=== PATIENT | female | born 1995 | race Two or more races ===

== ENCOUNTER 2017-07-21 13:15 | Inpatient (IN) | payer OTHER ==
[2017-07-21 15:47] LABS: PLATELET COUNT 125 10^3/uL (150-400)
[2017-07-21] MEDS ORDERED: MISOPROSTOL 200 MCG TAB PR PRN (17:30)
[2017-07-21] MEDS ORDERED: TERBUTALINE SULFATE 1 MG/ML VIAL IV PRN (17:30)
[2017-07-21] MEDS ORDERED: LR 1,000 ML IV PRN (17:30)
[2017-07-21] MEDS ORDERED: LIDOCAINE 1% 300 MG/30 ML SDV SC PRN (17:30)
[2017-07-21] MEDS ORDERED: OXYTOCIN/NORMAL SALINE 1,000 ML IV PRN (17:30)
[2017-07-21] MEDS ORDERED: OLIVE OIL 118 ML BTL MISC PRN (17:30)
[2017-07-21] MEDS ORDERED: EPSOM SALT 454 GM TP PRN (17:30)
[2017-07-21] MEDS ORDERED: CALCIUM GLUC 10% 1 GM/10 ML VIAL IVP PRN (18:20)
[2017-07-21] MEDS ORDERED: LR 500 ML IV PRN ×2 (18:20→19:07)
[2017-07-21] MEDS ORDERED: AMMONIA AROMATIC 1 EACH AMP IH ONE (18:27)
[2017-07-21] MEDS ORDERED: TERBUTALINE SULFATE 1 MG/ML VIAL ONE (18:27)
[2017-07-21] MEDS ORDERED: LIDOCAINE 1% 300 MG/30 ML SDV ONE (18:27)
[2017-07-21] MEDS ORDERED: OLIVE OIL 118 ML BTL ONE (18:27)
[2017-07-21] MEDS ORDERED: MAGNESIUM SULF 4 GM/WATER 100 ML IV ONE (18:28)
[2017-07-21] MEDS ORDERED: MISOPROSTOL 200 MCG TAB ONE (18:28)
[2017-07-21] MEDS ORDERED: OXYTOCIN 10 UNIT/ML VIAL ONE (18:28)
[2017-07-21] MEDS ORDERED: MAGNESIUM SULF 2 GM/WATER 50 ML BAG IV ONE (18:29)
--- NOTE | 2017-07-21 18:36 | PDGENHP ---
History and Physical - Chief Complaint contractions - History of Present Illness 21 yo G1 at 38w3d by LMP c/w 15 wk US. Here today with contractions all day today, often irregular, sometimes painful. No LOF, some bloody show, good FM. No WOLFE, no vis changes, no epigastric or RUQ pain. Uncomplicated course - late care which started early 2nd trimester. Normal anatomy scan at 20 wk with EFW at 31%ile labs: GBS neg 1 hr GTT 98 CBC at 15 wk: plts 222, h/h 12.8/35.6 O pos Ab screen neg RPR NR Rub Imm HbsAG neg HIV neg Parvo nonimmune pap neg Gonorrhea neg Chlamydia neg History Information - Allergies/Home Medication List Allergies/Adverse Reactions: No Known Allergies Allergy (Unverified 07/21/17 14:06) Home Medications: Docosahexanoic Acid [ Dha] 1 tab PO DAILY 07/21/17 [Last Taken Unknown] Ferrous Sulfate [Iron] 325 mg PO 07/21/17 [Last Taken Unknown] I have personally reviewed and updated: family history, medical history, social history, surgical history Past Medical History: TB at age 13, 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 Pt is respiratory therapist at [employer] Review of Systems Review of Systems: ROS: 10pt was reviewed & negative except for what was stated in HPI & below Physical Exam Physical Exam: Gen - pleasant, NAD 36.9 72 164/109 BPs labile, but at 1315 = 164/107, and 1800 164/109 did have some 120-140/75 in between Constitutional: no apparent distress Eyes: PERRL Ears, Nose, Mouth, Throat: moist mucous membranes Cardiovascular: regular rate and rhythym Respiratory: no respiratory distress Lab Data & Imaging Review 07/21/17 15:30 07/21/17 15:30 WBC 8.36 10^3/uL (3.80-9.50) 07/21/17 15:30 RBC 4.12 10^6/uL (4.18-5.33) L 07/21/17 15:30 Hgb 13.4 g/dL (12.6-16.3) 07/21/17 15:30 Hct 37.5 % (38.0-47.0) L 07/21/17 15:30 MCV 91.0 fL (81.5-99.8) 07/21/17 15:30 MCH 32.5 pg (27.9-34.1) 07/21/17 15: MCHC 35.7 g/dL (32.4-36.7) 07/21/17 15: RDW 13.6 % (11.5-15.2) 07/21/17 15:30 Plt Count 125 10^3/uL (150-400) L 07/21/17 15: MPV 13.2 fL (8.7-11.7) H 07/21/17 15: Neut % (Auto) 66.5 % (39.3-74.2) 07/21/17 15:30 Lymph % (Auto) 25.0 % (15.0-45.0) 07/21/17 15: [place] % (Auto) 7.7 % (4.5-13.0) 07/21/17 15:30 Eos % (Auto) 0.1 % (0.6-7.6) L 07/21/17 15: Baso % (Auto) 0.2 % (0.3-1.7) L 07/21/17 15: Nucleat RBC Rel Count 0.0 % (0.0-0.2) 07/21/17 15:30 Absolute Neuts (auto) 5.56 10^3/uL (1.70-6.50) 07/21/17 15:30 Absolute Lymphs (auto) 2.09 10^3/uL (1.00-3.00) 07/21/17 15:30 Absolute Monos (auto) 0.64 10^3/uL (0.30-0.80) 07/21/17 15:30 Absolute Eos (auto) 0.01 10^3/uL (0.03-0.40) L 07/21/17 15:30 Absolute Basos (auto) 0.02 10^3/uL (0.02-0.10) 07/21/17 15:30 Absolute Nucleated RBC 0.00 10^3/uL (0-0.01) 07/21/17 15:30 Immature Gran % 0.5 % (0.0-1.1) 07/21/17 15:30 Immature Gran # 0.04 10^3/uL (0.00-0.10) 07/21/17 15:30 BUN 12 mg/dL (7-23) 07/21/17 15:30 Creatinine 0.7 mg/dL (0.6-1.0) 07/21/17 15:30 Estimated GFR > 60 07/21/17 15:30 Uric Acid 6.1 mg/dL (2.5-6.8) 07/21/17 15:30 Total Bilirubin 0.3 mg/dL (0.1-1.4) 07/21/17 15:30 Conjugated Bilirubin 0.2 mg/dL (0.0-0.5) 07/21/17 15:30 Unconjugated Bilirubin 0.1 mg/dL (0.0-1.1) 07/21/17 15:30 AST 18 IU/L (14-46) 07/21/17 15:30 ALT 24 IU/L (9-52) 07/21/17 15:30 Lactate Dehydrogenase 442 IU/L (313-618) 07/21/17 15:30 Ur Random Creatinine 20.6 mg/dL 07/21/17 16:25 U Random Total Protein 72 mg/dL (0-11) H 07/21/17 16:25 Assessment & Plan Assessment: 21 G1 at 38w3d with preeclampsia with severe features by BPs nearly 6 hours apart, P/c = 3.5 Plan: Pitocin induction, magsulfate seizure prophylaxis.
[2017-07-21] MEDS: Mag Sulf 500 ML IV SCH (19:26)
[2017-07-21] MEDS ORDERED: OXYTOCIN/NORMAL SALINE 500 ML IV SCH (19:30)
[2017-07-21] MEDS ORDERED: fentaNYL 100 MCG/2 ML INJ IV ONE (22:00)
[2017-07-21] MEDS ORDERED: LABETALOL HCL 5 MG/ML 20 ML MDV IVP ONE ×2 (22:12→22:39)
--- NOTE | 2017-07-21 22:33 | OBPROG ---
Labor Progress Note Assessment/Plan: Assessment:21 G1 at 38w3d undergoing IOL for preeclampsia with severe features by BPs, with increasing BPs No signs of magnesium sulfate toxicity Minimal progress of labor Plan: 1) continue induction with pitocin. 2)Continue magsulfate at 2gm / hour 3) IV Labetolol prn to control BP <160/110, per ACOG Comm Opinion: Emergent Therapy for Acute-Onset, Severe Hypertension During and the Period 4) Repeat PIH labs now 07/21/17 22:41 Subjective/Intrapartum Course: 07/21/17 22:44 Pt has become quite uncomfortable with contractions, asking for pain medication initially and now epidural. No WOLFE, no vis changes, no dyspnea, no chest pain. 07/21/17 22:45 Objective: 07/21/17 15:30 07/21/17 15:30 Patient ABO/Rh O POSITIVE 07/21/17 17:15 Uric Acid 6.1 mg/dL (2.5-6.8) 07/21/17 15:30 Total Bilirubin 0.3 mg/dL (0.1-1.4) 07/21/17 15:30 Conjugated Bilirubin 0.2 mg/dL (0.0-0.5) 07/21/17 15:30 Unconjugated Bilirubin 0.1 mg/dL (0.0-1.1) 07/21/17 15:30 AST 18 IU/L (14-46) 07/21/17 15:30 ALT 24 IU/L (9-52) 07/21/17 15:30 Lactate Dehydrogenase 442 IU/L (313-618) 07/21/17 15:30 BP - 173/111, given 20 mg Labetolol, repeat 151/105 urine out - @ 1945 = 650, @2000 = 225, @ 2100 = 350 ml, clear yellow gen - pleasant female in obvious discomfort with contractions CV - RRR chest - CTAB abd - gravid, soft and NT when not pedrito ext - calves NT, no edema, 2+ brisk DTRs, no clonus - unchanged from admission - SVE Dilation (cm): 3 Effacement (%): 80 Station: -1 Membranes: Intact - Contraction Pattern Assessment Current Contraction Pattern: Regular - FHR Assessment Chiang FHR (bpm): 120 FHR Pattern Variability: Moderate FHR Category: 1 - AP Antepartum Course: 07/21/17 22:51 21 yo G1, uncomplicated course after late care started at 15 weeks. Received routine care after that with [facility]. - Physical Exam Estimated Weight: 2501-3400g Oxytocin Orders Assessment - Pre-Induction/Augmentation Assessment Gestational Age: 38 week(s) and 3 day(s) ICD10 Worksheet Patient Problems: Problems Problem Status Onset Pre-eclampsia during in third trimester, antepartum Acute Supervision of normal first in third trimester Acute - ICD10 Problem Qualifiers (1) Pre-eclampsia during in third trimester, antepartum (2) Supervision of normal first in third trimester
[2017-07-21 22:45] LABS: PLATELET COUNT 138 10^3/uL (150-400)
[2017-07-21] MEDS ORDERED: fentaNYL 100 MCG/2 ML INJ ONE (23:29)
[2017-07-21] MEDS ORDERED: fentaNYL 200 MCG, BUPIVACAINE 0.5% 20 ML in NS 100 ML EP SCH (23:30)
[2017-07-21] MEDS ORDERED: BUPIVACAINE 0.25% 30 ML SDV ONE (23:30)
[2017-07-21] MEDS ORDERED: PHENYLEPHRINE HCL 100 MCG/ML SYR ONE (23:39)
[2017-07-22] MEDS ORDERED: NALOXONE HCL 0.4 MG/ML INJ IVP PRN (00:08)
[2017-07-22] MEDS ORDERED: ONDANSETRON 4 MG/2 ML VIAL IVP PRN (00:08)
[2017-07-22] MEDS ORDERED: PHENYLEPHRINE HCL 100 MCG/ML SYR IVP PRN (00:08)
--- NOTE | 2017-07-22 00:12 | PREANESOB ---
Obstetric Pre-Anesthesia Info - General Info : 1 Para: 0 DENIA: 08/01/17 Gestational Age: 38 week(s) and 3 day(s) - Labor Status Cervical Dilation per last OB SVE: 3 Station per last OB SVE: -1 Anesthesia Allergies/Adverse Reactions: Allergy/AdvReac Type Severity Reaction Status Date / Time No Known Allergies Allergy Unverified 07/21/17 14:06 Home Medications: Medication Instructions Recorded Docosahexanoic Acid [ Dha] 1 tab PO DAILY 07/21/17 Ferrous Sulfate [Iron] 325 mg PO 07/21/17 Visit Medications: Generic Name Dose Route Start Last Admin Trade Name Freq PRN Reason Stop Dose Admin Calcium Gluconate 1 gm 07/21/17 18:20 Calcium Gluconate IVP 01/17/18 18:19 PRN PRN Magnesium Toxicity Lactated Ringer's 1,000 mls @ 0 mls/hr 07/21/17 17:30 07/21/17 18:57 Lr IV 07/22/17 17:29 1,000 mls PRN PRN Administration SEE PROTOCOL CONDITIONS Protocol Per Protocol Oxytocin/Sodium Chloride 1,000 mls @ 0 mls/hr 07/21/17 17:30 Pitocin 20 Units/Ns (Premix) IV PRN PRN Post Bleeding As Directed Magnesium Sulfate 500 mls @ 50 mls/hr 07/21/17 18:30 07/21/17 19:26 Magnesium Sulfate 20 Gm/ 500 Ml (Premix) IV 01/17/18 18:29 500 mls CONT ALDO Administration Lactated Ringer's 500 mls @ 500 mls/hr 07/21/17 19:07 Lr IV 07/22/17 19:07 PRN PRN Maternal Hypotension Oxytocin/Sodium Chloride 500 mls @ 0 mls/hr 07/21/17 19:30 07/21/17 19:28 Pitocin 30 Units/Ns (Premix) IV 01/17/18 19:29 500 mls CONT ALDO Administration Protocol Per Protocol Fentanyl 200 mcg/ Bupivacaine 100 mls @ 0 mls/hr 07/21/17 23:30 HCl 20 ml/ Sodium Chloride EP 07/31/17 23:29 CONT ALDO Protocol As Directed Ibuprofen 600 mg 07/21/17 17:30 Motrin PO 01/17/18 17:29 Q6HRS PRN post , inflammation Lidocaine HCl 300 mg 07/21/17 17:30 Lidocaine Hcl 1% SC 01/17/18 17:29 ONCE PRN episiotomy Magnesium Sulfate 454 gm 07/21/17 17:30 Epsom Salt TP 01/17/18 17:29 Q1H PRN perineal discomfort Misoprostol 800 - 1,000 mcg 07/21/17 17:30 Cytotec NV ONCE PRN Vaginal Atony/Bleeding Gordon Oil 118 ml 07/21/17 17:30 Sweet Oil MISC 01/17/18 17:29 ONCE PRN perineal massage Terbutaline Sulfate 0.25 mg 07/21/17 17:30 Brethine IV 01/17/18 17:29 ONCE PRN Tachysystole Discontinued Medications Generic Name Dose Route Start Last Admin Trade Name Freq PRN Reason Stop Dose Admin Ammonia (Aromatic Spirit) Confirm 07/21/17 18:27 Ammonia Aromatic Administered 07/21/17 18:28 Dose 1 each IH .STK-MED ONE Bupivacaine HCl Confirm 07/21/17 23:30 Sensorcaine 0.25% Sdv Administered 07/21/17 23:31 Dose 30 ml .ROUTE .STK-MED ONE Fentanyl 50 mcg 07/21/17 22:00 Sublimaze IV 07/21/17 22:01 ONCE ONE Fentanyl Confirm 07/21/17 23:29 Sublimaze Administered 07/21/17 23:30 Dose 100 mcg .ROUTE .STK-MED ONE Magnesium Sulfate 100 mls @ 200 mls/hr 07/21/17 18:28 07/21/17 18:54 Magnesium Sulf 4 Gm (Premix) IV 07/21/17 18:57 100 mls ONCE ONE Administration Labetalol HCl 20 mg 07/21/17 22:12 07/21/17 22:19 Trandate Injection IVP 07/21/17 22:13 20 mg ONCE ONE Administration Labetalol HCl 40 mg 07/21/17 22:39 07/21/17 22:45 Trandate Injection IVP 07/21/17 22:40 20 mg ONCE ONE Administration Lidocaine HCl Confirm 07/21/17 18:27 Lidocaine Hcl 1% Administered 07/21/17 18:28 Dose 300 mg .ROUTE .STK-MED ONE Magnesium Sulfate Confirm 07/21/17 18:29 Magnesium Sulf 2 Gm (Premix) Administered 07/21/17 18:30 Dose 2 gm IV .STK-MED ONE Misoprostol Confirm 07/21/17 18:28 Cytotec Administered 07/21/17 18:29 Dose 1,000 mcg .ROUTE .STK-MED ONE Gordon Oil Confirm 07/21/17 18:27 Sweet Oil Administered 07/21/17 18:28 Dose 118 ml .ROUTE .STK-MED ONE Oxytocin Confirm 07/21/17 18:28 Pitocin Administered 07/21/17 18:29 Dose 40 unit .ROUTE .STK-MED ONE Phenylephrine HCl Confirm 07/21/17 23:39 Neosynephrine Administered 07/21/17 23:40 Dose 1,000 mcg .ROUTE .STK-MED ONE Terbutaline Sulfate Confirm 07/21/17 18:27 Brethine Administered 07/21/17 18:28 Dose 1 mg .ROUTE .STK-MED ONE - Anesthesia History Response to Local Anesthetics: Normal Anesthesia & Operative History: No Prior Problems - Social History Substance Use/Abuse: Denies - Vital Signs Height/Weight (Nursing): Height 160.02 cm Weight 69.4 kg - Focused Exam Mallampati Score: Class 1 Mouth exam: normal dental/mouth exam Pulmonary: no respiratory distress Cardiovascular: regular rate and rhythym Labs: 07/21/17 22:30 07/21/17 22:30 Patient ABO/Rh O POSITIVE 07/21/17 17:15 Uric Acid 6.7 mg/dL (2.5-6.8) 07/21/17 22:30 Total Bilirubin 0.3 mg/dL (0.1-1.4) 07/21/17 15:30 Conjugated Bilirubin 0.2 mg/dL (0.0-0.5) 07/21/17 15:30 Unconjugated Bilirubin 0.1 mg/dL (0.0-1.1) 07/21/17 15:30 AST 22 IU/L (14-46) 07/21/17 22:30 ALT 30 IU/L (9-52) 07/21/17 22:30 Lactate Dehydrogenase 491 IU/L (313-618) 07/21/17 22:30 - Plan Anesthetic Plan: PCEA Consent Signed and on Chart: Yes
[2017-07-22] MEDS ORDERED: fentaNYL 2MCG/ML/BUP 0.1% RTU 100 ML EP SCH (00:30)
[2017-07-22] MEDS ORDERED: LR 500 ML IV SCH (00:30)
--- NOTE | 2017-07-22 03:11 | OBPROG ---
Labor Progress Note Assessment/Plan: Assessment:21 G1 at 38w3d undergoing IOL for preeclampsia with severe features by BPs, with increasing BPs No signs of magnesium sulfate toxicity Minimal progress of labor Plan: 1) continue induction with pitocin. 2)Continue magsulfate at 2gm / hour 3) IV Labetolol prn to control BP <160/110, per ACOG Comm Opinion: Emergent Therapy for Acute-Onset, Severe Hypertension During and the Period 4) Repeat PIH labs now 07/21/17 22:41 A/P:21 yo G1 at 38w4d - IOL for preeclampsia with severe features 1) BPs were high, but since has received 2 doses of 20mg of IV Labetolol, pressures have remained under 160/110 2) Continue magsulfate, no signs of toxicity, will check mag level with next PIH lab draw around 0430 (6 hr after last labs). Urine output much less than when catheter initially placed, but adequate 3) epidural in place and effective 4) Minimal labor progress - so AROM performed, clear, though blood tinged, and IUPC placed. 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 Will repeat in 6 hour interval. 07/22/17 03:11 07/22/17 03:20 07/22/17 03:22 Subjective/Intrapartum Course: Pt has become quite uncomfortable with contractions, asking for pain medication initially and now epidural. No WOLFE, no vis changes, no dyspnea, no chest pain. 07/21/17 22:45 Pt comfortable after epidural. Mild headache right now after being awakened - declines tylenol, thinks is related to her contacts. No epigastric or RUQ pain. NO dyspnea or chest pain. 07/22/17 03:15 Objective: 07/21/17 22:30 07/21/17 22:30 Patient ABO/Rh O POSITIVE 07/21/17 17:15 Uric Acid 6.7 mg/dL (2.5-6.8) 07/21/17 22:30 Total Bilirubin 0.3 mg/dL (0.1-1.4) 07/21/17 15:30 Conjugated Bilirubin 0.2 mg/dL (0.0-0.5) 07/21/17 15:30 Unconjugated Bilirubin 0.1 mg/dL (0.0-1.1) 07/21/17 15:30 AST 22 IU/L (14-46) 07/21/17 22:30 ALT 30 IU/L (9-52) 07/21/17 22:30 Lactate Dehydrogenase 491 IU/L (313-618) 07/21/17 22:30 VS 35.7 76 140/96 BP ranges over past 3 hours 122-140/72-96 hourly urine output:past 4 hours: 225 / 50 / 50 / 100(@0300) CV - RRR chest - CTAB abd - gravid, soft, NT calves - NT - SVE Dilation (cm): 4 Effacement (%): 100 Station: -3 Membranes: AROM Amniotic Fluid Color: Clear, Bloody (blood tinged) - Contraction Pattern Assessment Current Contraction Pattern: Regular - FHR Assessment Chiang FHR (bpm): 120 (occasional early appearing deceleration) FHR Pattern Variability: Moderate FHR Category: 1 - Procedures Non-surgical Procedures: Amniotomy, IUPC - AP Antepartum Course: 07/21/17 22:51 21 yo G1, uncomplicated course after late care started at 15 weeks. Received routine care after that with [facility]. - Physical Exam Estimated Weight: 2501-3400g Oxytocin Orders Assessment - Pre-Induction/Augmentation Assessment Gestational Age: 38 week(s) and 3 day(s) Estimated Weight: 2501-3400g ICD10 Worksheet Patient Problems: Problems Problem Status Onset Pre-eclampsia during in third trimester, antepartum Acute Supervision of normal first in third trimester Acute - ICD10 Problem Qualifiers (1) Pre-eclampsia during in third trimester, antepartum (2) Supervision of normal first in third trimester
[2017-07-22] MEDS ORDERED: ACETAMINOPHEN 325 MG TAB PO PRN (04:10)
[2017-07-22 05:05] LABS: PLATELET COUNT 131 10^3/uL (150-400)
[2017-07-22] MEDS: Mag Sulf 500 ML IV SCH (05:08)
--- NOTE | 2017-07-22 06:17 | OBPROG ---
Labor Progress Note Assessment/Plan: Assessment:21 G1 at 38w3d undergoing IOL for preeclampsia with severe features by BPs, with increasing BPs No signs of magnesium sulfate toxicity Minimal progress of labor Plan: 1) continue induction with pitocin. 2)Continue magsulfate at 2gm / hour 3) IV Labetolol prn to control BP <160/110, per ACOG Comm Opinion: Emergent Therapy for Acute-Onset, Severe Hypertension During and the Period 4) Repeat PIH labs now 07/21/17 22:41 A/P:21 yo G1 at 38w4d - IOL for preeclampsia with severe features 1) BPs were high, but since has received 2 doses of 20mg of IV Labetolol, pressures have remained under 160/110 2) Continue magsulfate, no signs of toxicity, will check mag level with next PIH lab draw around 0430 (6 hr after last labs). Urine output much less than when catheter initially placed, but adequate 3) epidural in place and effective 4) Minimal labor progress - so AROM performed, clear, though blood tinged, and IUPC placed. Will adjust pitocin accordingly, may go up to 30miu/hr pitocin 5) repeat labs were stable - uric acid slightly increased, h/h showing more hemoconcentration, rn icu and plts stable. Will repeat in 6 hour interval. 07/22/17 03:11 07/22/17 03:20 A/P: 21 yo G1 at 38w4d undergoing IOL for preeclampsia with severe features, GBS neg 1)s/p 2 doses IV labetolol prior to midnight to control BPs - have been under 160/110 since then 2) Cont mag sulfate, mag level appropriate, urine output adequate 3) Cont epidural 4) Slow labor progress, contraction pattern only intermittently adequate with MVU >200, will continue pitocin - currently at 24 5) Repeat labs at 0430 - stable 07/22/17 06:10 Subjective/Intrapartum Course: Pt has become quite uncomfortable with contractions, asking for pain medication initially and now epidural. No WOLFE, no vis changes, no dyspnea, no chest pain. 07/21/17 22:45 Pt comfortable after epidural. Mild headache right now after being awakened - declines tylenol, thinks is related to her contacts. No epigastric or RUQ pain. NO dyspnea or chest pain. 07/22/17 03:15 07/22/17 06:17 Resting comfortably. WOLFE resolved. NO CP or dyspnea. Objective: 07/22/17 04:32 07/22/17 04:32 Patient ABO/Rh O POSITIVE 07/21/17 17:15 Uric Acid 6.2 mg/dL (2.5-6.8) 07/22/17 04:32 Total Bilirubin 0.3 mg/dL (0.1-1.4) 07/22/17 04:32 Conjugated Bilirubin 0.1 mg/dL (0.0-0.5) 07/22/17 04:32 Unconjugated Bilirubin 0.2 mg/dL (0.0-1.1) 07/22/17 04:32 AST 23 IU/L (14-46) 07/22/17 04:32 ALT 31 IU/L (9-52) 07/22/17 04:32 Lactate Dehydrogenase 546 IU/L (313-618) 07/22/17 04:32 CV - RRR chest - CTAB calves - no tenderness Mag at 0430 was 6.9 - SVE Dilation (cm): 5 Effacement (%): 80 Membranes: AROM Amniotic Fluid Color: Clear, Bloody (blood tinged) - Contraction Pattern Assessment Current Contraction Pattern: Regular - FHR Assessment Chiang FHR (bpm): 120 (intermittent early decels) FHR Pattern Variability: Moderate FHR Category: 1 - Procedures Non-surgical Procedures: Amniotomy, IUPC - AP Antepartum Course: 07/21/17 22:51 21 yo G1, uncomplicated course after late care started at 15 weeks. Received routine care after that with [facility] [place]. - Physical Exam Estimated Weight: 2501-3400g Oxytocin Orders Assessment - Pre-Induction/Augmentation Assessment Gestational Age: 38 week(s) and 3 day(s) Estimated Weight: 2501-3400g ICD10 Worksheet Patient Problems: Problems Problem Status Onset Pre-eclampsia during in third trimester, antepartum Acute Supervision of normal first in third trimester Acute - ICD10 Problem Qualifiers (1) Pre-eclampsia during in third trimester, antepartum (2) Supervision of normal first in third trimester
--- NOTE | 2017-07-22 09:16 | OBPROG ---
Labor Progress Note Assessment/Plan: Assessment: Now complete, not feeling any urge to push. Will labor down 1 hr and recheck, will push sooner if UOP/BP/labs dictate worsening dz. Repeat labs 1115, with mag level. UOP had been great overnight, then down to 10cc/hr this AM, then 25, will monitor closely. BP normal range s/p epidural, will give 500cc bolus now. JM Subjective/Intrapartum Course: Pt has become quite uncomfortable with contractions, asking for pain medication initially and now epidural. No WOLFE, no vis changes, no dyspnea, no chest pain. 07/21/17 22:45 Pt comfortable after epidural. Mild headache right now after being awakened - declines tylenol, thinks is related to her contacts. No epigastric or RUQ pain. NO dyspnea or chest pain. 07/22/17 03:15 07/22/17 06:17 Resting comfortably. WOLFE resolved. NO CP or dyspnea. 07/22/17 09:14 Not feeling much for pain with her ctx's - can sense them come and go. Denies any new s/sx of preeclampsia. Objective: 07/22/17 04:32 07/22/17 04:32 Patient ABO/Rh O POSITIVE 07/21/17 17:15 Uric Acid 6.2 mg/dL (2.5-6.8) 07/22/17 04:32 Total Bilirubin 0.3 mg/dL (0.1-1.4) 07/22/17 04:32 Conjugated Bilirubin 0.1 mg/dL (0.0-0.5) 07/22/17 04:32 Unconjugated Bilirubin 0.2 mg/dL (0.0-1.1) 07/22/17 04:32 AST 23 IU/L (14-46) 07/22/17 04:32 ALT 31 IU/L (9-52) 07/22/17 04:32 Lactate Dehydrogenase 546 IU/L (313-618) 07/22/17 04:32 - SVE Dilation (cm): 10 Effacement (%): 0, 100 Station: 0 Membranes: AROM Amniotic Fluid Color: Clear, Bloody (blood tinged) Dilation Complete Time: 09:14 - Contraction Pattern Assessment Current Contraction Pattern: Irregular - FHR Assessment Chiang FHR (bpm): 120 FHR Pattern Variability: Moderate FHR Category: 2 - Procedures Non-surgical Procedures: Amniotomy, IUPC - AP Antepartum Course: 07/21/17 22:51 21 yo G1, uncomplicated course after late care started at 15 weeks. Received routine care after that with [facility]. - Physical Exam Estimated Weight: 2501-3400g Oxytocin Orders Assessment - Pre-Induction/Augmentation Assessment Gestational Age: 38 week(s) and 3 day(s) Estimated Weight: 2501-3400g ICD10 Worksheet Patient Problems: Problems Problem Status Onset Pre-eclampsia during in third trimester, antepartum Acute Supervision of normal first in third trimester Acute
[2017-07-22 11:31] LABS: PLATELET COUNT 129 10^3/uL (150-400)
--- NOTE | 2017-07-22 14:35 | OBDEL ---
Info Type: Vaginal Presentation at Delivery: Vertex L&D Analgesia/Anesthesia Type: Epidural GBS+: No Intrapartum Medications: Generic Name Dose Route Start Last Admin Trade Name Cinthia PRN Reason Stop Dose Admin Acetaminophen 650 mg 07/22/17 04:10 07/22/17 04:12 Tylenol PO 01/18/18 04:09 650 mg Q4HRS PRN Administration Pain/headache, can take PO Lactated Ringer's 1,000 mls @ 0 mls/hr 07/21/17 17:30 07/21/17 18:57 Lr IV 07/22/17 17:29 1,000 mls PRN PRN Administration SEE PROTOCOL CONDITIONS Protocol Per Protocol Magnesium Sulfate 500 mls @ 50 mls/hr 07/21/17 18:30 07/22/17 05:08 Magnesium Sulfate 20 Gm/ 500 Ml (Premix) IV 01/17/18 18:29 500 mls CONT ALDO Administration Oxytocin/Sodium Chloride 500 mls @ 0 mls/hr 07/21/17 19:30 07/21/17 19:28 Pitocin 30 Units/Ns (Premix) IV 01/17/18 19:29 500 mls CONT ALDO Administration Protocol Per Protocol Ondansetron HCl 4 mg 07/22/17 00:08 07/22/17 07:16 Zofran IVP 07/23/17 00:07 4 mg Q4HRS PRN Administration Nausea/Vomiting, Can't Take PO Discontinued Medications Generic Name Dose Route Start Last Admin Trade Name Cinthia PRN Reason Stop Dose Admin Magnesium Sulfate 100 mls @ 200 mls/hr 07/21/17 18:28 07/21/17 18:54 Magnesium Sulf 4 Gm (Premix) IV 07/21/17 18:57 100 mls ONCE ONE Administration Lactated Ringer's 500 mls @ 500 mls/hr 07/21/17 19:07 07/22/17 00:11 Lr IV 07/22/17 19:07 500 mls PRN PRN Administration Maternal Hypotension Labetalol HCl 20 mg 07/21/17 22:12 07/21/17 22:19 Trandate Injection IVP 07/21/17 22:13 20 mg ONCE ONE Administration Labetalol HCl 40 mg 07/21/17 22:39 07/21/17 22:45 Trandate Injection IVP 07/21/17 22:40 20 mg ONCE ONE Administration - Hospital Course Intrapartum: Pt has become quite uncomfortable with contractions, asking for pain medication initially and now epidural. No WOLFE, no vis changes, no dyspnea, no chest pain. 07/21/17 22:45 Pt comfortable after epidural. Mild headache right now after being awakened - declines tylenol, thinks is related to her contacts. No epigastric or RUQ pain. NO dyspnea or chest pain. 07/22/17 03:15 07/22/17 06:17 Resting comfortably. WOLFE resolved. NO CP or dyspnea. 07/22/17 09:14 Not feeling much for pain with her ctx's - can sense them come and go. Denies any new s/sx of preeclampsia. Indications for Delivery: Preeclampsia Mild Vaginal Delivery - Delivery Provider Delivery Physician/CNM: Chase Medina - Labor and Delivery Onset of Contractions Date: 07/21/17 Onset of Contractions Time: 09:30 Onset of Contractions Type: Augmented Rupture of Membranes Type: Artificial Amniotic Fluid Color: Clear, Bloody (blood tinged) Dilation Complete Date: 07/22/17 Dilation Complete Time: 09:14 Non-surgical Procedures: Amniotomy, IUPC Laceration: Other (Specify) (Left sulcus, left fannie-urethral) Repair: 3-0, 4-0 Vaginal Sponge Count Correct: Yes Vaginal Needle Count Correct: Yes Vaginal Sweep Performed: Yes EBL: 400cc Delivery Events: None, Nuchal Cord Delivery Comment: Completely dilated around 0900 this AM. Pt labored down for approximately 1 hr then began pushing. FHR category I/II throughout stage I and II. Pt pushed for approximately 60 minutes ultimately delivering vigorous baby girl in direct OA vertex position. Baby brought up to mom's chest - 60 secs of DCC then cord clamped and cut. Placenta delivered spontaneously. Placenta sent to path, cord gasses not collected nor sent. Perineum inspected - left sulcus tear and left fannie-urethral (rather deep). Sulcus repaired with 3-0 vicryl in running locked stitch. Fannie-urethral repaired with running locked 4-0. Additional figure of eight of 3-0 vicryl needed to achieve complete hemostasis. Baby and mom doing well in room at conclusion of the case. Magnesium had been turned off just after delivery as mag level just prior to baby came back at 9.5 with decreasing UOP. Will leave off and recheck level in 2 hrs. - Medications Labor Augmentation/Induction Methods Used: Pitocin Labor Augmentation/Induction Indication: Medical Data DENIA: 08/01/17 Gestational Age: 38 week(s) and 4 day(s) Chiang Delivery Date: 07/22/17 Delivery Time: 12:30 Sex of : Female ICD10 Worksheet Patient Problems: Problems Problem Status Onset Pre-eclampsia during in third trimester, antepartum Acute Supervision of normal first in third trimester Acute Vaginal delivery Acute - ICD10 Problem Qualifiers (1) Vaginal delivery
[2017-07-22] MEDS ORDERED: DOCUSATE SODIUM 100 MG CAP PO PRN (14:36)
[2017-07-22] MEDS ORDERED: SIMETHICONE 80 MG TAB CHEW PO PRN (14:36)
[2017-07-22] MEDS ORDERED: HYDROCORTISONE 0.5% CREAM TP PRN (14:36)
[2017-07-22] MEDS ORDERED: HYDROCODONE/APAP 5/325 TAB PO PRN (14:36)
[2017-07-22] MEDS ORDERED: LACTULOSE 20 GM/30 ML UDCUP PO PRN (14:45)
[2017-07-22] MEDS ORDERED: POLYETHYLENE GLYCOL 3350 17 GM PKT PO PRN (14:45)
[2017-07-22] MEDS ORDERED: BISACODYL 10 MG SUPP PR PRN (14:45)
[2017-07-22] MEDS ORDERED: MAGNESIUM HYDROXIDE 30 ML UDCUP PO PRN (14:45)
[2017-07-22] MEDS: IBUPROFEN 600 MG TAB PO PRN (18:15)
[2017-07-22] MEDS: SENNOSIDES/DOCUSATE SODIUM TAB PO SCH (21:16)
[2017-07-22] MEDS ORDERED: Mag Sulf 500 ML IV SCH (22:00)
[2017-07-22] MEDS ORDERED: LR 1,000 ML IV SCH (23:30)
[2017-07-23] MEDS: IBUPROFEN 600 MG TAB PO PRN ×4 (00:26→22:47)
[2017-07-23 06:16] LABS: PLATELET COUNT 110 10^3/uL (150-400)
--- NOTE | 2017-07-23 08:49 | OBPP ---
Progress Note Assessment/Plan: Assessment: 21 y/o s/p 4/9 @ 1230 Pre-eclampsia with severe features (severe range BPs on admission, P/C ratio 3.5 ) MagSo4 currently 1.5 gm/hour Left sulcus, left periurethral lacs Anemia-HCT 28 (40 on admission) WBC-28 (14 on admission) -afebrile Plan: Will check mag level and plan to D/C magnesium at 1230 Recheck CBC this afternoon BID ferrous sulfate Continue to monitor BP and urine output Advance diet and activity as tolerated after magnesium d/c'd Reviewed plan with Heaven Vuong MD 07/23/17 11:22 07/23/17 11:40 07/23/17 11:44 Subjective/ Course: 07/23/17 11:33 Patient is doing well this morning. Reports lochia to be light, pain controlled with oral medication, tolerating regular diet- griffith in place. is going well. Denies h/a, visual changes, epigastric pain. 07/23/17 11:37 Objective: 07/23/17 05:50 07/23/17 05:50 Patient ABO/Rh O POSITIVE 07/21/17 17:15 Uric Acid 6.3 mg/dL (2.5-6.8) 07/23/17 05:50 Total Bilirubin 0.2 mg/dL (0.1-1.4) 07/23/17 05:50 Conjugated Bilirubin 0.2 mg/dL (0.0-0.5) 07/23/17 05:50 Unconjugated Bilirubin 0.0 mg/dL (0.0-1.1) 07/23/17 05:50 AST 25 IU/L (14-46) 07/23/17 05:50 ALT 24 IU/L (9-52) 07/23/17 05:50 Lactate Dehydrogenase 634 IU/L (313-618) H 07/23/17 05:50 Temp Pulse Resp BP Pulse Ox 36.8 C 84 20 110/63 07/22/17 14:36 07/22/17 14:36 07/22/17 14:36 07/22/17 14:36 VSS afebrile, BPs WNL overnight Urine output >300cc/hr the last several hours Respirations unlabored Extremities with minimal edema Lochia scant Fundus firm Perineum healing well -well approximated Nipples intact Uterine Position/Fundal Height: At Umbilicus Uterine Tone: Firm
[2017-07-23] MEDS: FERROUS SULFATE 325 MG TAB PO SCH ×2 (16:27→22:47)
[2017-07-23 16:34] LABS: PLATELET COUNT 111 10^3/uL (150-400)
[2017-07-24] MEDS: SENNOSIDES/DOCUSATE SODIUM TAB PO SCH ×2 (00:49→12:31)
[2017-07-24] MEDS: IBUPROFEN 600 MG TAB PO PRN ×2 (05:08→10:36)
[2017-07-24] MEDS: FERROUS SULFATE 325 MG TAB PO SCH (10:36)
[2017-07-24 12:27] VITALS: BP 134/85
--- NOTE | 2017-07-24 14:17 | OBPP ---
Progress Note Assessment/Plan: Assessment:21 G1 at 38w3d undergoing IOL for preeclampsia with severe features by BPs, with increasing BPs No signs of magnesium sulfate toxicity Minimal progress of labor Plan: 1) continue induction with pitocin. 2)Continue magsulfate at 2gm / hour 3) IV Labetolol prn to control BP <160/110, per ACOG Comm Opinion: Emergent Therapy for Acute-Onset, Severe Hypertension During and the Period 4) Repeat PIH labs now 07/21/17 22:41 A/P:21 yo G1 at 38w4d - IOL for preeclampsia with severe features 1) BPs were high, but since has received 2 doses of 20mg of IV Labetolol, pressures have remained under 160/110 2) Continue magsulfate, no signs of toxicity, will check mag level with next PIH lab draw around 0430 (6 hr after last labs). Urine output much less than when catheter initially placed, but adequate 3) epidural in place and effective 4) Minimal labor progress - so AROM performed, clear, though blood tinged, and IUPC placed. Will adjust pitocin accordingly, may go up to 30miu/hr pitocin 5) repeat labs were stable - uric acid slightly increased, h/h showing more hemoconcentration, dairy manufacturing technologist and plts stable. Will repeat in 6 hour interval. 07/22/17 03:11 07/22/17 03:20 A/P: 21 yo G1 at 38w4d undergoing IOL for preeclampsia with severe features, GBS neg 1)s/p 2 doses IV labetolol prior to midnight to control BPs - have been under 160/110 since then 2) Cont mag sulfate, mag level appropriate, urine output adequate 3) Cont epidural 4) Slow labor progress, contraction pattern only intermittently adequate with MVU >200, will continue pitocin - currently at 24 5) Repeat labs at 0430 - stable 07/22/17 06:10 07/24/17 14:12 A/P:21 yo G1now P1 S/p 2 d ago - induced for preeclampsia with severe features. Doing well. BPs normalized and now are a little high again, though not in a range to indicate medication. Pt is without symptoms of preeclampsia. Ready to go home. Having some urinary incontinence. Sounds like overflow. 1) dc home -dc instructions reviewed. 2) FU in 3 days for BP check - will come to L&D/ Mom/Baby on Saturday when comes in for baby appointment. May call BP to physician elevator constructor. 3) Reviewed scheduled voiding over the next week to allow bladder to heal. 4) ssx pp depression reviewed. See dc summary. Subjective/ Course: 07/23/17 11:33 Patient is doing well this morning. Reports lochia to be light, pain controlled with oral medication, tolerating regular diet- griffith in place. is going well. Denies h/a, visual changes, epigastric pain. 07/23/17 11:37 07/24/17 14:19 Doing well, going well. Lochia less than a menses. Michael reg diet. Ambulating without difficulty. Is having some urinary incontinence - seems to be overflow. NO WOLFE, no vis changes, no epigastric pain. Desires homegoing today. Objective: 07/23/17 16:00 07/23/17 05:50 Patient ABO/Rh O POSITIVE 07/21/17 17:15 Uric Acid 6.3 mg/dL (2.5-6.8) 07/23/17 05:50 Total Bilirubin 0.2 mg/dL (0.1-1.4) 07/23/17 05:50 Conjugated Bilirubin 0.2 mg/dL (0.0-0.5) 07/23/17 05:50 Unconjugated Bilirubin 0.0 mg/dL (0.0-1.1) 07/23/17 05:50 AST 25 IU/L (14-46) 07/23/17 05:50 ALT 24 IU/L (9-52) 07/23/17 05:50 Lactate Dehydrogenase 634 IU/L (313-618) H 07/23/17 05:50 Temp Pulse Resp BP Pulse Ox 36.7 C 72 16 134/85 H 97 07/24/17 08:00 07/24/17 08:00 07/24/17 08:00 07/24/17 08:00 07/24/17 01:45 gen - pleasant female, NAD CV - RRR chest - CTAB abd - fundus firm at u-3 ext - 1 + BLE edema, calves NT, 2+ DTRs, no clonus Uterine Position/Fundal Height: Umbilicus -3 Uterine Tone: Firm
--- NOTE | 2017-07-24 14:27 | OBGCSDC ---
General Delivery Information - General Info : 1 Para: 1 Abortions: 0 Type: Vaginal L&D Analgesia/Anesthesia Type: Epidural Admission Date: 07/21/17 Labs: Patient ABO/Rh O POSITIVE 07/21/17 17:15 Hct 23.0 % (38.0-47.0) L 07/23/17 16:00 All labs reviewed, including all CBCs and all PIH panels. WBC was up to 28. WBC 21.14 10^3/uL (3.80-9.50) H 07/23/17 16:00 RBC 2.46 10^6/uL (4.18-5.33) L 07/23/17 16:00 Hgb 8.0 g/dL (12.6-16.3) L 07/23/17 16:00 Hct 23.0 % (38.0-47.0) L 07/23/17 16:00 MCV 93.5 fL (81.5-99.8) 07/23/17 16:00 MCH 32.5 pg (27.9-34.1) 07/23/17 16:00 MCHC 34.8 g/dL (32.4-36.7) 07/23/17 16:00 RDW 14.4 % (11.5-15.2) 07/23/17 16:00 Plt Count 111 10^3/uL (150-400) L 07/23/17 16:00 MPV 12.8 fL (8.7-11.7) H 07/23/17 16:00 Neut % (Auto) 78.7 % (39.3-74.2) H 07/23/17 16:00 Lymph % (Auto) 13.7 % (15.0-45.0) L 07/23/17 16:00 Castro % (Auto) 6.0 % (4.5-13.0) 07/23/17 16:00 Eos % (Auto) 0.2 % (0.6-7.6) L 07/23/17 16:00 Baso % (Auto) 0.3 % (0.3-1.7) 07/23/17 16:00 Nucleat RBC Rel Count 0.0 % (0.0-0.2) 07/23/17 16:00 Absolute Neuts (auto) 16.65 10^3/uL (1.70-6.50) H 07/23/17 16:00 Absolute Lymphs (auto) 2.90 10^3/uL (1.00-3.00) 07/23/17 16:00 Absolute Monos (auto) 1.26 10^3/uL (0.30-0.80) H 07/23/17 16:00 Absolute Eos (auto) 0.04 10^3/uL (0.03-0.40) 07/23/17 16:00 Absolute Basos (auto) 0.06 10^3/uL (0.02-0.10) 07/23/17 16:00 Absolute Nucleated RBC 0.00 10^3/uL (0-0.01) 07/23/17 16:00 Immature Gran % 1.1 % (0.0-1.1) 07/23/17 16:00 Immature Gran # 0.23 10^3/uL (0.00-0.10) H 07/23/17 16:00 BUN 16 mg/dL (7-23) 07/23/17 05:50 Creatinine 0.9 mg/dL (0.6-1.0) 07/23/17 05:50 Estimated GFR > 60 07/23/17 05:50 Uric Acid 6.3 mg/dL (2.5-6.8) 07/23/17 05:50 Magnesium 7.2 mg/dL (1.6-2.3) H* 07/23/17 05:50 Total Bilirubin 0.2 mg/dL (0.1-1.4) 07/23/17 05:50 Conjugated Bilirubin 0.2 mg/dL (0.0-0.5) 07/23/17 05:50 Unconjugated Bilirubin 0.0 mg/dL (0.0-1.1) 07/23/17 05:50 AST 25 IU/L (14-46) 07/23/17 05:50 ALT 24 IU/L (9-52) 07/23/17 05:50 Lactate Dehydrogenase 634 IU/L (313-618) H 07/23/17 05:50 Ur Random Creatinine 20.6 mg/dL 07/21/17 16:25 U Random Total Protein 72 mg/dL (0-11) H 07/21/17 16:25 Patient ABO/Rh O POSITIVE 07/21/17 17:15 Antibody Screen NEGATIVE 07/21/17 17:15 - Hospital Course Antepartum: 07/21/17 22:51 21 yo G1, uncomplicated course after late care started at 15 weeks. Received routine care after that with [facility] [place]. Intrapartum: Pt has become quite uncomfortable with contractions, asking for pain medication initially and now epidural. No WOLFE, no vis changes, no dyspnea, no chest pain. 07/21/17 22:45 Pt comfortable after epidural. Mild headache right now after being awakened - declines tylenol, thinks is related to her contacts. No epigastric or RUQ pain. NO dyspnea or chest pain. 07/22/17 03:15 07/22/17 06:17 Resting comfortably. WOLFE resolved. NO CP or dyspnea. 07/22/17 09:14 Not feeling much for pain with her ctx's - can sense them come and go. Denies any new s/sx of preeclampsia. : 07/23/17 11:33 Patient is doing well this morning. Reports lochia to be light, pain controlled with oral medication, tolerating regular diet- griffith in place. is going well. Denies h/a, visual changes, epigastric pain. 07/23/17 11:37 07/24/17 14:19 Doing well, going well. Lochia less than a menses. Michael reg diet. Ambulating without difficulty. No lightheadedness or dizziness. Is having some urinary incontinence - seems to be overflow. NO WOLFE, no vis changes, no epigastric pain. Desires homegoing today. 07/24/17 14:27 Vaginal - Delivery Provider Delivery Physician/CNM: Chase Medina - Diagnosis Labor: Augmented Rupture of Membranes Type: Artificial Amniotic Fluid Color: Clear, Bloody (blood tinged) Laceration: Other (Specify) (Left sulcus, left suhail-urethral) Repair: 3-0, 4-0 Delivery Events: None, Nuchal Cord - Procedures Non-surgical Procedures: Amniotomy, IUPC - Delivery Non-surgical Procedures: Amniotomy, IUPC EBL: 400cc Vale Data DENIA: 08/01/17 Gestational Age: 38 week(s) and 6 day(s) Chiang Delivery Date: 07/22/17 Delivery Time: 12:30 Sex of : Female Weight (gm): 2976 kg Score (1 Min): 8 Score (5 Min): 9 Discharge Information - Discharge Information Condition: Good Instruction/Follow Up: Four Weeks ([facility] free appointment at [facility]), Six Weeks (normal check up - pelvic rest until then please.)
== END 2017-07-24 16:00 | disposition home or self-care (01) | DRG 775 ==
LOC: FLD 13:15 → OBSVTOIN 18:51 → FOB 07-23 16:02
PROVIDERS: ADMIT Hospitalist; ATTEND Hospitalist
PROC: 4A1J7BZ Monitoring of Products of Conception, Nervous Pressure, Via Natural or Artificial Opening (ICD-10-PCS; 2017-07-21)
PROC: 10907ZC Drainage of Amniotic Fluid, Therapeutic from Products of Conception, Via Natural or Artificial Opening (ICD-10-PCS; 2017-07-21)
PROC: 3E033VJ Introduction of Other Hormone into Peripheral Vein, Percutaneous Approach (ICD-10-PCS; 2017-07-21)
PROC: 0HQ9XZZ Repair Perineum Skin, External Approach (ICD-10-PCS; principal; 2017-07-22)
PROC: 0UQMXZZ Repair Vulva, External Approach (ICD-10-PCS; principal; 2017-07-22)
PROC: 10E0XZZ Delivery of Products of Conception, External Approach (ICD-10-PCS; principal; 2017-07-22)
DX: O14.14 Severe pre-eclampsia complicating childbirth (principal); O99.02 Anemia complicating childbirth; O71.82 Other specified trauma to perineum and vulva; O70.0 First degree perineal laceration during delivery; Z3A.38 38 weeks gestation of pregnancy; Z37.0 Single live birth
CPT/HCPCS: J0610; J2370; J2405; J2590; J3010; J3105; J3475

== ENCOUNTER 2017-07-27 13:00 | Observation (INO) | payer OTHER | END 2017-07-27 13:30 | disposition home or self-care (01) | LOC: FLD 13:00 | PROVIDERS: ADMIT Advanced Practice Midwife; ATTEND Advanced Practice Midwife | DX: Z01.30 Encounter for examination of blood pressure without abnormal findings (principal) ==